=== PATIENT | female | born 1965 | race Caucasian/White ===

== ENCOUNTER 2016-12-20 18:31 | Emergency (ER) | payer BC, OTHER ==
--- NOTE | 2016-12-20 18:44 | EDPHY ---
H & P Time Seen by Provider: 12/20/16 18:39 HPI/ROS: CHIEF COMPLAINT: Shortness of breath HISTORY OF PRESENT ILLNESS: The patient is a 51-year-old female presenting with shortness of breath. Onset of cough and congestion 3-4 days ago. Associated with SOB, beginning last night. The patient was lying in bed and felt she could not get enough air. Her shortness of breath continued throughout the day. Exacerbated by exertion. She developed a headache to the occipital region. No fever, no recent sickness. Patient notes chronic cough, no recent change. REVIEW OF SYSTEMS: A comprehensive 10 point review of systems is otherwise negative aside from elements mentioned in the history of present illness. Past Medical/Surgical History: Hypertension Social History: Cigarettes smoker. Smoking Status: Current every day smoker Physical Exam: General Appearance: Alert, pleasant Eyes: Pupils equal and round, no conjunctival pallor or injection ENT, Mouth: Mucous membranes moist Neck: Normal inspection Respiratory: Diffuse expiratory wheezing Cardiovascular: Regular rate and rhythm Gastrointestinal: Abdomen is soft and non-tender Neurological: A&O, nonfocal, normal gait Skin: Warm and dry, no rash Extremities: Nontender, no pedal edema, multiple bug bites to lower extremities. Psychiatric: Mood and affect normal Constitutional: Initial Vital Signs Temperature (C) 37 C 12/20/16 18:43 Heart Rate 57 L 12/20/16 18:43 Respiratory Rate 17 12/20/16 18:43 Blood Pressure 153/96 H 12/20/16 18:43 O2 Sat (%) 98 12/20/16 18:43 O2 Delivery Mode Room Air Allergies/Adverse Reactions: azithromycin Allergy (Verified 12/20/16 18:43) erythromycin base Allergy (Verified 12/20/16 18:43) Sulfa (Sulfonamide Antibiotics) Allergy (Verified 12/20/16 18:43) Home Medications: Medication Instructions Recorded Albuterol [Proventil Inhaler HFA 2 puffs IH QID PRN #1 mdi 12/20/16 (*)] Hydrochlorothiazide 12/20/16 Metoprolol Tartrate 12/20/16 Medical Decision Making - Diagnostics Imaging Results: CXR: hyperinflation Imaging: Discussed imaging studies w/ body recall instructor Radiologist, I viewed and interpreted images myself ED Course/Re-evaluation: This patient presents with acute bronchospasm. DuoNeb given with resolution of SOB. Lungs are clear to auscultation after the duoneb. CXR is unremarkable; no evidence of pneumonia. Discussed with patient need to stop smoking. Tylenol given for headache. Differential Diagnosis: includes though not limited to pneumonia, pulmonary edema, hypoxia, PTX - Data Points Medications Given: Discontinued Medications Acetaminophen (Tylenol) 650 mg PO EDNOW ONE Stop: 12/20/16 19:17 Last Admin: 12/20/16 19:34 Dose: 650 mg Albuterol/Ipratropium (Duoneb) 3 ml IH EDNOW ONE Stop: 12/20/16 18:46 Last Admin: 12/20/16 19:00 Dose: 3 ml Departure - Departure Disposition: Home, Routine, Self-Care Clinical Impression: Bronchospasm Insect bites Qualifiers: Encounter type: initial encounter Qualified Code(s): W57.XXXA - Bitten or stung by nonvenomous insect and other nonvenomous arthropods, initial encounter Condition: Good Instructions: Insect Bite or Sting (ED), Bronchospasm (ED) Additional Instructions: Use the albuterol inhaler as directed for shortness of breath. Claritin or Benadryl as needed for bug bites. Call your primary care physician tomorrow to arrange a followup appointment. Referrals: Sheeba Wu PA [Physician [facility]] - As per Instructions Prescriptions: Albuterol [Proventil Inhaler HFA (*)] 2 puffs IH QID PRN #1 mdi PRN Reason: Short Of Breath/Dyspnea Report Scribed for: Charu Son Report Scribed by: Tana Bourgeois Date of Report: 12/20/16 Time of Report: 18:46 Physician Review and Approval Statement: 12/20/16 18:46 Portions of this note were transcribed by a medical nurse. I personally performed the history, physical exam, and medical decision-making; and confirmed the accuracy of the information in the transcribed note.
[2016-12-20] MEDS ORDERED: IPRATROPIUM/ALBUTEROL 3 ML DEYVIAL IH ONE (18:45)
[2016-12-20] MEDS ORDERED: ACETAMINOPHEN 325 MG TAB PO ONE (19:16)
[2016-12-20 19:54] VITALS: BP 148/76; PULSE 59; RESP 18; TEMP 98.2; O2SAT 96
== END 2016-12-20 19:40 | disposition home or self-care (01) ==
LOC: EDUNIT#
DX: J98.01 Acute bronchospasm (principal); S80.869A Insect bite (nonvenomous), unspecified lower leg, initial encounter; I10 Essential (primary) hypertension; F17.210 Nicotine dependence, cigarettes, uncomplicated; W57.XXXA Bitten or stung by nonvenomous insect and other nonvenomous arthropods, initial encounter

== ENCOUNTER → 2017-06-05 | Outpatient (CLI) | payer OTHER | LOC: FIMAGING 09:34 | PROVIDERS: ATTEND Physician Assistant | DX: N63.10 Unspecified lump in the right breast, unspecified quadrant (principal) | CPT/HCPCS: G0204 ==